=== PATIENT | male | born 1955 | race Caucasian/White ===

== ENCOUNTER 2021-12-15 05:14 | Observation (INO) ==
--- NOTE | 2021-11-12 15:12 | PAT Medication Instructions ---
Medication Instructions Date of Service November 12, 2021 Home Medications Medication Instructions Recorded oxycodone-acetaminophen 5 mg-325 1 - 2 tab PO Q6H PRN #60 tab 10/30/18 mg tablet (Percocet) allopurinol 300 mg tablet 300 mg PO QPM amlodipine 5 mg tablet 2.5 mg PO QPM carvedilol 25 mg tablet 25 mg PO BID cyclobenzaprine 10 mg tablet 10 mg PO QPM PRN furosemide 20 mg tablet 20 mg PO QAM omeprazole 20 mg capsule,delayed release 20 mg PO BID potassium chloride 10 mEq capsule,extended release 10 meq PO BID sennosides 8.6 mg tablet (senna) 17.2 mg PO QPM turmeric 400 mg capsule 1 cap PO QAM oxycodone-acetaminophen 5 mg-325 mg tablet (Percocet) 1 - 2 tab PO Q6H PRN allopurinol 100 mg tablet 100 mg PO QPM ascorbic acid (vitamin C) 500 mg tablet,extended release (Vitamin C ER) 500 mg PO DAILY cholecalciferol (vitamin D3) 25 mcg (1,000 unit) tablet (Vitamin D3) 25 mcg PO DAILY garlic 1,000 mg PO QAM losartan 50 mg tablet 50 mg PO QAM STOP taking 2 weeks before surgery (or as soon as possible if surgery is within 2 weeks) turmeric 400 mg capsule 1 cap PO QAM garlic 1,000 mg PO QAM DO NOT take the morning of surgery furosemide 20 mg tablet 20 mg PO QAM potassium chloride 10 mEq capsule,extended release 10 meq PO BID ascorbic acid (vitamin C) 500 mg tablet,extended release (Vitamin C ER) 500 mg PO DAILY cholecalciferol (vitamin D3) 25 mcg (1,000 unit) tablet (Vitamin D3) 25 mcg PO DAILY losartan 50 mg tablet 50 mg PO QAM Take morning of surgery With a small sip of water, OTHERWISE NOTHING TO EAT OR DRINK AFTER MIDNIGHT: carvedilol 25 mg tablet 25 mg PO BID omeprazole 20 mg capsule,delayed release 20 mg PO BID oxycodone-acetaminophen 5 mg-325 mg tablet (Percocet) 1 - 2 tab PO Q6H PRN (okay to take up to 4 hours prior to surgery if needed) Take evening before surgery allopurinol 300 mg tablet 300 mg PO QPM amlodipine 5 mg tablet 2.5 mg PO QPM carvedilol 25 mg tablet 25 mg PO BID cyclobenzaprine 10 mg tablet 10 mg PO QPM PRN (if needed) omeprazole 20 mg capsule,delayed release 20 mg PO BID potassium chloride 10 mEq capsule,extended release 10 meq PO BID sennosides 8.6 mg tablet (senna) 17.2 mg PO QPM oxycodone-acetaminophen 5 mg-325 mg tablet (Percocet) 1 - 2 tab PO Q6H PRN (if needed) allopurinol 100 mg tablet 100 mg PO QPM Other Notes If you have any questions please call us at [phone] or [phone] or [phone] or [phone]
--- NOTE | 2021-11-12 15:14 | PAT Medication Instructions ---
Medication Instructions Date of Service November 12, 2021 Home Medications Medication Instructions Recorded oxycodone-acetaminophen 5 mg-325 1 - 2 tab PO Q6H PRN #60 tab 10/30/18 mg tablet (Percocet) allopurinol 300 mg tablet 300 mg PO QPM amlodipine 5 mg tablet 2.5 mg PO QPM carvedilol 25 mg tablet 25 mg PO BID cyclobenzaprine 10 mg tablet 10 mg PO QPM PRN furosemide 20 mg tablet 20 mg PO QAM omeprazole 20 mg capsule,delayed release 20 mg PO BID potassium chloride 10 mEq capsule,extended release 10 meq PO BID sennosides 8.6 mg tablet (senna) 17.2 mg PO QPM turmeric 400 mg capsule 1 cap PO QAM oxycodone-acetaminophen 5 mg-325 mg tablet (Percocet) 1 - 2 tab PO Q6H PRN allopurinol 100 mg tablet 100 mg PO QPM ascorbic acid (vitamin C) 500 mg tablet,extended release (Vitamin C ER) 500 mg PO DAILY cholecalciferol (vitamin D3) 25 mcg (1,000 unit) tablet (Vitamin D3) 25 mcg PO DAILY garlic 1,000 mg PO QAM losartan 50 mg tablet 50 mg PO QAM STOP taking 2 weeks before surgery turmeric 400 mg capsule 1 cap PO QAM DO NOT take the morning of surgery furosemide 20 mg tablet 20 mg PO QAM potassium chloride 10 mEq capsule,extended release 10 meq PO BID ascorbic acid (vitamin C) 500 mg tablet,extended release (Vitamin C ER) 500 mg PO DAILY cholecalciferol (vitamin D3) 25 mcg (1,000 unit) tablet (Vitamin D3) 25 mcg PO DAILY garlic 1,000 mg PO QAM losartan 50 mg tablet 50 mg PO QAM Take morning of surgery With a small sip of water, OTHERWISE NOTHING TO EAT OR DRINK AFTER MIDNIGHT: carvedilol 25 mg tablet 25 mg PO BID omeprazole 20 mg capsule,delayed release 20 mg PO BID oxycodone-acetaminophen 5 mg-325 mg tablet (Percocet) 1 - 2 tab PO Q6H PRN(okay to take up to 4 hours prior to surgery if needed) Take evening before surgery allopurinol 300 mg tablet 300 mg PO QPM amlodipine 5 mg tablet 2.5 mg PO QPM carvedilol 25 mg tablet 25 mg PO BID cyclobenzaprine 10 mg tablet 10 mg PO QPM PRN(if needed) omeprazole 20 mg capsule,delayed release 20 mg PO BID potassium chloride 10 mEq capsule,extended release 10 meq PO BID sennosides 8.6 mg tablet (senna) 17.2 mg PO QPM oxycodone-acetaminophen 5 mg-325 mg tablet (Percocet) 1 - 2 tab PO Q6H PRN(if needed) allopurinol 100 mg tablet 100 mg PO QPM Other Notes If you have any questions please call us at [phone] or [phone] or [phone] or [phone]
--- NOTE | 2021-11-16 09:43 | Anesthesiology Consultation ---
Date of Service November 16, 2021 Assessment & Plan (1) Encounter for pre-operative examination: - intermittent chest discomfort with associated shortness of breath. He also reports intermittent dizziness on current dose of losartan. He is aware to contact his ticketer regarding symptoms. Awaiting cardiology pre-op evaluation and clearance, scheduled 11/25 per pt. Will also attempt to obtain copy of previous catheterization report. - awaiting medical pre-op evaluation and clearance, scheduled 11/23 per pt. - He reports currently planned dental procedure 2 weeks prior to planned surgery. He verbalized understanding he needs to contact surgeon's office to see if this is acceptable, aware of potential risk. - COVID screening: Per assessment on 11/16/2021: Travel screen negative, no known COVID-19 positive contacts or current COVID-19 related symptoms in past 2 weeks. Surgeon arranging preop COVID testing, scheduled 12/13/2021. Awaiting results. Chart Review Chart Review: Pending: Refer to Additional Notes / Consult section and Patient seen in Pre Admission Testing Teaching & Discussion Pre-Anesthesia Teaching/Discussion Notes: Instructed NPO after midnight before surgery, except medications with 15 cc of water. Medication instructions provided according to the PAT guidelines. History Surgery Operation Date: 12/15/21 10:45 Proposed Procedures p Right Total Knee Arthroplasty - Cristino Carrillo DO Height/Weight Height: 6 ft 4 in Weight: 129.274 kg Allergies Allergy/AdvReac Type Severity Reaction Status Date / Time No Known Allergies Allergy Verified 11/11/21 15:34 Medications Home Medications Medication Instructions Recorded Confirmed Last Taken allopurinol 300 mg tablet 300 mg PO QPM 05/11/18 11/11/21 05/28/18 20:30 amlodipine 5 mg tablet 2.5 mg PO QPM 05/11/18 11/11/21 05/29/18 05:30 carvedilol 25 mg tablet 25 mg PO BID 05/11/18 11/11/21 05/29/18 05:30 cyclobenzaprine 10 mg tablet 10 mg PO QPM PRN 05/11/18 11/11/21 05/27/18 21:00 furosemide 20 mg tablet 20 mg PO QAM 05/11/18 11/11/21 05/28/18 08:00 omeprazole 20 mg capsule,delayed 20 mg PO BID 05/11/18 11/11/21 05/28/18 05:30 release potassium chloride 10 mEq 10 meq PO BID 05/11/18 11/11/21 05/28/18 20:30 capsule,extended release sennosides 8.6 mg tablet (senna) 17.2 mg PO QPM 05/11/18 11/11/21 05/28/18 20:30 turmeric 400 mg capsule 1 cap PO QAM 05/11/18 11/11/21 05/28/18 08:00 oxycodone-acetaminophen 5 mg-325 1 - 2 tab PO Q6H PRN #60 tab 05/29/18 11/11/21 Unknown mg tablet (Percocet) allopurinol 100 mg tablet 100 mg PO QPM 11/11/21 11/11/21 Unknown ascorbic acid (vitamin C) 500 mg 500 mg PO DAILY 11/11/21 11/11/21 Unknown tablet,extended release (Vitamin C ER) cholecalciferol (vitamin D3) 25 25 mcg PO DAILY 11/11/21 11/11/21 Unknown mcg (1,000 unit) tablet (Vitamin D3) garlic 1,000 mg PO QAM 11/11/21 11/11/21 Unknown losartan 50 mg tablet 50 mg PO QAM 11/11/21 11/11/21 Unknown sucralfate PO QID 11/16/21 Unknown Past Medical History Medical History (Updated 11/16/21 @ 14:11 by Kathia Yee PA-C) CAD (coronary artery disease) NON-OBSTRUCTIVE per pt GERD (gastroesophageal reflux disease) intermittent symptoms, recently started on sucralafate 4x daily Gout History of nephrolithiasis Hypertension controlled, stable per pt Obesity Sleep apnea BIPAP-compliant Patient denies h/o stroke, seizures, heart attack, heart failure, DM, blood clots or blood transfusions. Exercise / Class Metabolic Activity II 4-5 Yardwork/Stairs/Walk up hill (Intermittent chest discomfort during the day after longer walk, states is on sucralafate for reflux; associated with SOB ) Past Surgical History Surgical History History of arthroscopy B/L; RIGHT SHOULDER ARTHROSCOPY= = LMA#5 History of arthroscopy BILATERAL KNEE History of cardiac cath 2015= NO STENTS History of colonoscopy History of cystoscopy History of laminectomy C4 History of lithotripsy History of tonsillectomy History of tympanoplasty right Status post myringotomy with insertion of tube Past Anesthesia History No Hx of Anesthesia Complications and No Family Hx of Anesthesia Complications History of PONV No Hx of PONV and No Hx of Motion Sickness Social History Smoking Status: Former smoker Do You Dip or Chew Tobacco: No Smoking End Date: 30 yrs ago Hx Alcohol Use: No Hx Substance Use: No substance use type: does not use Review of Systems He reports chills later in the day when is not as well hydrated. He reports occasional dizziness with activity on current dose of losartan, denies change or worsening, expresses plan to contact cardiology regarding his symptoms. Patient denies fever, cough, wheezing, or palpitations. Physical Exam Vital Signs Vitals BP 119/80 P 63 TEMP 98.5 SP02 96% on RA RESP 16 Physical Full cervical extension range of motion without pain TMD 3.5 finger breaths Mallampati Score 3 Dentition: intact, he reports upcoming dental procedure including implant placement 2 weeks prior to planned surgery (he verbalized understanding he needs to contact his surgeon to see if this is acceptable) Lungs: normal respiratory effort. Clear throughout to auscultation, no adventitious breath sounds Cardiac: regular rate and rhythm, no murmurs noted Carotid arteries: negative bruit bilat Lab Results Anesthesia Preop Results Results Anesthesia Widget: WBC 5.58 K/uL (4.8-10.8) 11/16/21 Hgb 15.1 g/dL (14.0-18.0) 11/16/21 Hct 44.0 % (42-52) 11/16/21 Plt 155 K/uL (130-400) 11/16/21 PT 10.0 Seconds (9.0-12.0) 11/16/21 PTT 27.9 Seconds (21.0-31.0) 11/16/21 INR 0.9 (0.9-1.1) 11/16/21 HA1c 5.6 % (4.5-5.6) 11/16/21 Urine Color Dark Yellow 11/16/21 Urine Appearance Clear (Clear) 11/16/21 Urine pH 7.0 (4.5-7.5) 11/16/21 Urine Specific [place] 1.028 (1.000-1.030) 11/16/21 Urine Protein Negative (Negative) 11/16/21 Urine Glucose (UA) Negative (Negative) 11/16/21 Urine Ketones Trace (Negative) H 11/16/21 Urine Blood Negative (Negative) 11/16/21 Urine Nitrite Negative (Negative) 11/16/21 Urine Bilirubin Negative (Negative) 11/16/21 Urine Urobilinogen Negative (Negative) 11/16/21 Urine Leukocyte Esterase 1+ (Negative) H 11/16/21 Urine WBC (Auto) 1-5 /hpf (0-5) 11/16/21 Urine RBC (Auto) 0-4 /hpf (0-4) 11/16/21 Urine Hyaline Casts (Auto) 0 /lpf (0-5) 11/16/21 Urine Epithelial Cells (Auto) 10-20 /lpf (0-5) H 11/16/21 Urine Bacteria (Auto) Negative (Negative) 11/16/21 Blood Type A Positive 11/16/21 Antibody Screen NEGATIVE 11/16/21 Testing Electrocardiogram Date: 11/16/21 Sinus rhythm with 1st degree AV block, rate 63 bpm Chest X-Ray Date: 11/16/21 Anterior cervical fixation hardware seen. The cardiomediastinal silhouette is normal. The lungs are clear. No evidence of pleural effusion or pneumothorax. IMPRESSION: No acute chest disease
--- NOTE | 2021-11-16 10:23 | Anesthesiology Consultation ---
Date of Service November 16, 2021 Assessment & Plan - Awaiting review of preop testing (labs, EKG, CXR). - COVID screening: Per assessment on 11/16: No known COVID-19 positive contacts or current COVID-19 related symptoms. Travel screen negative. Surgeon arranging preop COVID testing. Awaiting results. Chart Review Chart Review: Patient seen in Pre Admission Testing Teaching & Discussion Pre-Anesthesia Teaching/Discussion Notes: Instructed NPO after midnight before surgery,except medications with 15 cc of water. Medication instructions provided according to the PAT guidelines. History Surgery Operation Date: 12/15/21 10:45 Proposed Procedures p Right Total Knee Arthroplasty - Cristino Carrillo DO Height/Weight Height: 6 ft 4 in Weight: 129.274 kg Allergies Allergy/AdvReac Type Severity Reaction Status Date / Time No Known Allergies Allergy Verified 11/11/21 15:34 Medications Home Medications Medication Instructions Recorded Confirmed Last Taken allopurinol 300 mg tablet 300 mg PO QPM 05/11/18 11/11/21 05/28/18 20:30 amlodipine 5 mg tablet 2.5 mg PO QPM 05/11/18 11/11/21 05/29/18 05:30 carvedilol 25 mg tablet 25 mg PO BID 05/11/18 11/11/21 05/29/18 05:30 cyclobenzaprine 10 mg tablet 10 mg PO QPM PRN 05/11/18 11/11/21 05/27/18 21:00 furosemide 20 mg tablet 20 mg PO QAM 05/11/18 11/11/21 05/28/18 08:00 omeprazole 20 mg capsule,delayed 20 mg PO BID 05/11/18 11/11/21 05/28/18 05:30 release potassium chloride 10 mEq 10 meq PO BID 05/11/18 11/11/21 05/28/18 20:30 capsule,extended release sennosides 8.6 mg tablet (senna) 17.2 mg PO QPM 05/11/18 11/11/21 05/28/18 20:30 turmeric 400 mg capsule 1 cap PO QAM 05/11/18 11/11/21 05/28/18 08:00 oxycodone-acetaminophen 5 mg-325 1 - 2 tab PO Q6H PRN #60 tab 05/29/18 11/11/21 Unknown mg tablet (Percocet) allopurinol 100 mg tablet 100 mg PO QPM 11/11/21 11/11/21 Unknown ascorbic acid (vitamin C) 500 mg 500 mg PO DAILY 11/11/21 11/11/21 Unknown tablet,extended release (Vitamin C ER) cholecalciferol (vitamin D3) 25 25 mcg PO DAILY 11/11/21 11/11/21 Unknown mcg (1,000 unit) tablet (Vitamin D3) garlic 1,000 mg PO QAM 11/11/21 11/11/21 Unknown losartan 50 mg tablet 50 mg PO QAM 11/11/21 11/11/21 Unknown Past Medical History Medical History CAD (coronary artery disease) NON-OBSTRUCTIVE GERD (gastroesophageal reflux disease) CONTROLLED Gout History of nephrolithiasis Hx of renal calculi Hypertension Obesity Sleep apnea BIPAP Past Surgical History Surgical History History of arthroscopy B/L; RIGHT SHOULDER ARTHROSCOPY= = LMA#5 History of arthroscopy BILATERAL KNEE History of cardiac cath 2016= NO STENTS History of colonoscopy History of cystoscopy History of laminectomy C4 History of lithotripsy History of tonsillectomy History of tympanoplasty right Status post myringotomy with insertion of tube Social History Smoking Status: Former smoker Do You Dip or Chew Tobacco: No Smoking End Date: 30 yrs ago Hx Alcohol Use: No Hx Substance Use: No substance use type: does not use Review of Systems Patient denies chest pain, shortness of breath, dyspnea on exertion, fever, chills, cough, wheezing, palpitations. Physical Exam Vital Signs VITALS BP P TEMP SP02 RESP PHYSICAL Full cervical extension range of motion. Full TMJ range of motion. TMD __ finger breaths Mallampati Score ___ Dentition: intact Lungs: clear throughout to auscultation Cardiac: regular rate and rhythm, no murmurs noted Spine: normal Carotid arteries: negative bruit Extremities: no edema
--- NOTE | 2021-11-26 12:14 | History & Physical Report ---
Date of Service November 26, 2021 date of surgery: 12/15/21 Procedure: Right Total Knee Arthroplasty Surgeon: Cristino Carrillo Assessment & Plan (1) Arthritis of right knee: Plan: Further care discussed with patient and at this point in time has failed conservative measures and would like to proceed with a right total knee replacement. Plan on discharge will be home with home health physical therapy. DVT prophylaxiswith TEDs, SCDs and will also place on aspirin 81 mg p.o. b.i.d. for a month postop. Patient will have follow up appointment in our office two weeks post op for staple/suture removal and re-evaluation. Patient otherwise has no other questions or concerns. The risks and benefits have been discussed including, but not limited to, risk of infection, nerve injury, stiffness, loss of motion, failure to improve, etc. Reasonable outcomes and options of treatment were discussed. An explanation of appropriate alternatives to the procedure that may be advantageous were discussed and their risks and benefits, as well as the risks and benefits of not proceeding with treatment. I offered to answer any additional inquiries concerning the treatment involved. All the patient's questions were answered. The patient is agreeable, understanding of the treatment plan and alternatives, and wishes to proceed with the treatment plan. History of Present Illness Chief Complaint: Right knee pain Primary Care Provider: Praful Ramires is a 66 year old male who complains of right knee pain, presents for pre-op evaluation prior to a right total knee replacement by Dr Carrillo at [facility]. He complains of pain and stiffness in the knee. Currently the patient states that the symptoms are moderate-severe and 10/10 at worst. The pain is described as aching, sharp and throbbing. His symptoms are aggravated by ascending stairs, daily activities, first steps while awake walking. Prior NSAIDs include IBU and Aleve. He has been treated with previous injections including multiple cortisone inj and visco inj in the past without much relief. he has also had prior right knee arthroscopy in the past. Allergies Allergy/AdvReac Type Severity Reaction Status Date / Time No Known Allergies Allergy Verified 11/11/21 15:34 Home Medications Medication Instructions Recorded Confirmed Type allopurinol 300 mg tablet 300 mg PO QPM 05/11/18 11/11/21 History amlodipine 5 mg tablet 2.5 mg PO QPM 05/11/18 11/11/21 History carvedilol 25 mg tablet 25 mg PO BID 05/11/18 11/11/21 History cyclobenzaprine 10 mg tablet 10 mg PO QPM PRN 05/11/18 11/11/21 History furosemide 20 mg tablet 20 mg PO QAM 05/11/18 11/11/21 History omeprazole 20 mg capsule,delayed 20 mg PO BID 05/11/18 11/11/21 History release potassium chloride 10 mEq 10 meq PO BID 05/11/18 11/11/21 History capsule,extended release sennosides 8.6 mg tablet (senna) 17.2 mg PO QPM 05/11/18 11/11/21 History turmeric 400 mg capsule 1 cap PO QAM 05/11/18 11/11/21 History oxycodone-acetaminophen 5 mg-325 1 - 2 tab PO Q6H PRN #60 tab 05/29/18 11/11/21 Rx mg tablet (Percocet) allopurinol 100 mg tablet 100 mg PO QPM 11/11/21 11/11/21 History ascorbic acid (vitamin C) 500 mg 500 mg PO DAILY 11/11/21 11/11/21 History tablet,extended release (Vitamin C ER) cholecalciferol (vitamin D3) 25 25 mcg PO DAILY 11/11/21 11/11/21 History mcg (1,000 unit) tablet (Vitamin D3) garlic 1,000 mg PO QAM 11/11/21 11/11/21 History losartan 50 mg tablet 50 mg PO QAM 11/11/21 11/11/21 History sucralfate PO QID 11/16/21 History Past Med/Surg History Medical History CAD (coronary artery disease) NON-OBSTRUCTIVE per pt GERD (gastroesophageal reflux disease) intermittent symptoms, recently started on sucralafate 4x daily Gout History of nephrolithiasis Hypertension controlled, stable per pt Obesity Sleep apnea BIPAP-compliant Surgical History History of arthroscopy B/L; RIGHT SHOULDER ARTHROSCOPY= = LMA#5 History of arthroscopy BILATERAL KNEE History of cardiac cath 2015= NO STENTS History of colonoscopy History of cystoscopy History of laminectomy C4 History of lithotripsy History of tonsillectomy History of tympanoplasty right Status post myringotomy with insertion of tube Social History Smoking Status: Former smoker Second Hand Exposure: No; Hx Alcohol Use: No Hx Substance Use: No Preferred Language: Latvian Communication Ability: Effective 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 And 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 Required: No Beliefs That Will Affect Care: None Current Living Situation: Spouse Feels Safe at Home: Yes Assistive Devices: Glasses Review of Systems Review of Systems: All systems reviewed & are unremarkable except as noted in HPI & below Constitutional: no fever, no chills and no sweats Respiratory: no cough and no dyspnea Cardiovascular: no chest pain, no dyspnea and no orthopnea Gastrointestinal: no abdominal pain, no nausea and no vomiting Musculoskeletal: as per Subjective / HPI Physical Exam Physical Exam: HT: 6ft 4in WT: 129 kg Constitutional: WD/WN, vitals as above no acute distress Respiratory: normal respiratory effort, lungs clear to auscultation no respiratory distress, no labored breathing and does not use accessory muscles Cardiovascular: RRR, no murmur, no edema Gastrointestinal (Abdomen): normal bowel sounds, soft, nontender, no he patosplenomegaly Musculoskeletal: Knee: + knee abnormal to inspection (RIGHT KNEE- ), + effusion (+1 effusion), + surgical incision (well healed portals), + limited ROM of knee (ROM 0/3/110), + knee ROM with crepitation, + joint line tenderness (medial joint line) and + Sierra's sign positive; no deformity, no skin erythema, no ecchymosis, no valgus laxity, no varus laxity, anterior drawer test negative, Sakina's sign negative and pivot shift test negative Results & Data Results & Data ([facility]) Diagnostic Findings Right Knee X-ray: Right knee series showing advanced degenerative changes to the right knee, narrowing of the medial compartment and patello-femoral joint with patellar spurring noted, findings showing joint space narrowing of the medial compartment and patello-femoral joint, osteophyte formation and subchondral sclerosis noted. no acute bony pathology noted.
[2021-12-15] MEDS ORDERED: TRANEXAMIC ACID 1,000 MG **IV Intra-op IV SCH (06:00)
[2021-12-15] MEDS ORDERED: GABAPENTIN 600 MG DOSE PO SCH (06:00)
[2021-12-15] MEDS ORDERED: dexAMETHasone 4 MG TAB PO SCH (06:00)
[2021-12-15] MEDS ORDERED: ROPIVACAINE 0.5% HCL/PF 150 MG, BUPIVACAINE 0.75% MPF 20 ML, EPINEPHrine 30MG/30ML (OR ... INSTIL SCH (06:00)
[2021-12-15] MEDS ORDERED: FAMOTIDINE 20 MG TAB PO SCH (06:00)
[2021-12-15] MEDS ORDERED: TRANEXAMIC ACID 1,000 MG **IV Pre-op IV SCH (06:00)
[2021-12-15] MEDS ORDERED: ceFAZolin 2000MG 2,000 MG/15 ML SYR IV SCH (06:00)
[2021-12-15] MEDS ORDERED: ACETAMINOPHEN 500 MG TAB PO SCH (06:00)
[2021-12-15] MEDS ORDERED: oxyCODONE HCL 10 MG TABCR (OxyCONTIN) PO SCH (06:00)
[2021-12-15] MEDS ORDERED: CeleBREX 200 MG CAP PO SCH (06:00)
[2021-12-15] MEDS ORDERED: LR 500ML BOLUS, THEN 15ML/HR IV SCH (06:00)
[2021-12-15] MEDS ORDERED: METOCLOPRAMIDE HCL 10 MG TABLET PO SCH (06:00)
[2021-12-15] MEDS ORDERED: MIDAZOLAM HCL 1 MG/ML 2ML VIAL ONE ×3 (06:15→06:48)
[2021-12-15] MEDS ORDERED: PROPOFOL IV EMULSION 10 MG/ML 20 ML VIAL IV ONE (06:19)
[2021-12-15] MEDS ORDERED: BUPIVACAINE 0.5 % 5 MG/1 ML PF 10ML VIAL ONE (06:22)
[2021-12-15] MEDS ORDERED: ROPIVACAINE 0.5% 5 MG/ML 30 ML VIAL ONE (06:22)
[2021-12-15] MEDS ORDERED: ORTHO JOINT ANESTHETIC ONE (06:55)
--- NOTE | 2021-12-15 07:13 | History & Physical Bridge Note ---
Date of Service December 15, 2021 History & Physical Bridge Note I have examined the patient, reviewed the History & Physical and in the interval since the performance of the History & Physical I have noted the following changes of clinical significance: no changes noted
[2021-12-15] MEDS ORDERED: PROMETHAZINE HCL 12.5 MG in SODIUM CHLORIDE 0.9% 50 ML IV PRN (07:19)
[2021-12-15] MEDS ORDERED: ONDANSETRON INJ 2 MG/ML 2 ML VIAL IV PRN ×2 (07:19→11:34)
[2021-12-15] MEDS ORDERED: fentaNYL citrate 100 MCG/2 ML VIAL IV PRN (07:19)
[2021-12-15] MEDS ORDERED: ePHEDrine sulfate 50 MG/ML AMP IV PRN (07:19)
[2021-12-15] MEDS ORDERED: ATROPINE SULFATE 0.1 MG/ML 10ML SYR IV PRN (07:19)
[2021-12-15] MEDS ORDERED: HYDROmorphone INJ 2 MG/ML SYR/VIAL IV PRN (07:19)
[2021-12-15] MEDS ORDERED: ONDANSETRON INJ 2 MG/ML 2 ML VIAL ONE (07:41)
[2021-12-15] MEDS ORDERED: ePHEDrine sulfate 50 MG/ML SYR ONE (08:26)
--- NOTE | 2021-12-15 08:46 | Operative Report ---
Post Operative Report Pre & Post Diagnosis Operation Date: 12/15/21 07:00 Pre-Op Diagnosis: Right Knee Osteoarthritis Post-Op Diagnosis: Right Knee Osteoarthritis I identified the patient and participated in the time-out.: Yes Procedure Operation Date: 12/15/21 07:00 Actual Procedures p Right Total Knee Arthroplasty(Right) utilizing [employer] journey 2 patient matched total knee arthroplasty size femur 7 tibia 6 polyeleven 13 patella 32 oval Cristino Carrillo DO Surgeon Cristino Carrillo DO Medical Artist ABIGAIL Sanders Estimated Blood Loss 5 Findings Consistent with Post-Op Diagnosis Patient presents with severe end-stage tricompartmental degenerative joint disease with eburnated [id number] subchondral sclerosis marginal osteophytes varus alignment 5 degree flexion contracture moderate to large effusion Specimens Bone and cartilage Drains Medium bore Hemovac Anesthesia Type MAC Spinal Regional Complications none Disposition Accompanied Patient To Recovery: No Disposition: Recovery Room Indications Patient presents after failed attempted conservative management including physical therapy anti-inflammatories relative rest activity modification corticosteroid injection viscosupplementation the above intraoperative findings were noted Description of Procedure After proper prepping and draping of the Right lower extremity anterior midline incision was made over the region of the extensor extensor mechanism after meticulous hemostasis was obtained and maintained in subcutaneous tissues a medial parapatellar incision was made The patella was subluxed lateralward the medial lateral gutter were cleaned from any hypertrophic synovitis and scar tissue of the distal femoral block was placed and the distal femoral osteotomy cut was made subsequently the chamfers anterior and posterior osteotomy cuts were made utilizing the 4-in-1 block the tibia was subsequently subluxed anteriorward medial and ateral meniscal remnants were excised in their entirety remnants of the anterior and posterior cruciate ligaments were excised in their entirety excellent exposure of the proximal tibia was obtained the tibial osteotomy guide was placed on the proximal tibial osteotomy cut was made once again the knee was irrigated with copious amounts of sterile saline solution the patella was subsequently everted lateralward thickened scar tissue around the patella was removed the patella was subsequently cut utilizing a freehand technique and was drilled prepared for final preparation and placement of patella socially flexion-extension gaps were checked and the equal and symmetric trials were placed to the appropriate femoral and tibial trials with poly-spacer being placed for equal flexion and extension gaps and full range of motion including extension to 0 and flexion to 140 the trial components after having been taken to recovery range of motion was subsequently removed meticulous hemostasis was obtained and maintained subsequently a knee block injection of joint cocktail including ropivacaine 0.5% 150 mg. Bupivacaine 0.5% epinephrine 1-200,030 mL's toradol 30 mg dexamethasone 4 mg ketamine 10 mg clonidine 100 micrograms normal saline solution 30 mg was infiltrated into the soft tissues of the posterior knee medial lateral gutters and periosteal synovium special attention was paid to protect neurovascular structures at all times subsequently trial components having been removed the knee was irrigated with sterile saline solution. debris was removed the proximal tibia was subsequently prepared and was made ready for the placement of the tibial component tibial component was also cemented and tamped into position the femoral component was subsequently placed and cemented in the position the patellar component was subsequently cemented in position because hemostasis once again obtained and maintained wound having been thoroughly irrigated with debridement and debridement lavage was performed as well as a medial parapatellar incision closed with #1 Vicryl in interrupted fashion subcutaneous was closed with #2 Vicryl skin was closed with skin clips. PA-C was necessary for prepping and drapping as well as wound closure of deep fascia Sub cutaneous tissue and skin and was necessary for the case. A sterile compressive dressing was placed patient was taken to recovery in stable condition of report dictated by Gerardo I attest to the content of the Intraoperative Record and any orders documented therein. Any exceptions are noted below.Due to the complex nature of the procedure, the entire surgery was performed with the operational assistance of ABIGAIL Sanders. The title i instructional assistant, under direct supervision, was involved in the actual performance of all aspects of the surgical procedure including hemostasis, tissue retraction and incision, instrument management, patient positioning, and wound closure. I attest to the content of the Intraoperative Record and any orders documented therein. Any exceptions are noted below.
--- NOTE | 2021-12-15 09:29 | XRay Report ---
XR knee RT 1 or 2V routine CLINICAL HISTORY: Surgical Post Op. Status post total knee replacement COMPARISON STUDY: No previous studies for comparison. TECHNIQUE: 2 right knee views FINDINGS: The patient is status post total knee replacement. The prosthetic components are in anatomi c alignment with no acute abnormality seen. Air is present within the soft tissues from the procedure . IMPRESSION: 1. Status post total knee replacement. ACT 112: Negative or not required by law. Electronically signed by: Hardeep Azevedo M.D. 12/15/2021 9:27 AM
--- NOTE | 2021-12-15 10:35 | Anesthesiology Progress Note ---
Date of Service December 15, 2021 Anesthesia Post Procedure Vital Signs Vital Signs: Temp Pulse Pulse Resp BP Pulse Ox 12/15/21 10:25 36.5 C 58 L 16 118/84 95 12/15/21 10:10 58 L 15 122/77 96 12/15/21 09:55 56 L 15 120/79 95 12/15/21 09:45 56 L 14 122/76 96 12/15/21 09:35 55 L 14 122/79 95 12/15/21 09:25 55 L 14 125/82 94 12/15/21 09:15 65 14 126/77 95 12/15/21 09:05 55 L 14 120/77 96 12/15/21 08:57 36.3 C L 62 14 115/70 98 12/15/21 05:35 36.9 C 69 18 142/81 H 97 Pain Intensity Right Knee: Pain Intensity: 1 Transfer of Care Handoff Completed per policy Notes Mental Status: alert / awake / arousable and participated in evaluation Patient Amnestic to Procedure: Yes Nausea / Vomiting: adequately controlled Pain: adequately controlled Airway Patency, RR, SpO2: stable & adequate BP & HR: stable & adequate Hydration State: stable & adequate Neuraxial Anesthesia: was administered and sensory block is resolving Anesthetic Complications: no major complications apparent
[2021-12-15] MEDS ORDERED: CYCLOBENZAPRINE HCL 10 MG TAB PO PRN (11:34)
[2021-12-15] MEDS ORDERED: NALOXONE HCL 0.4 MG/1 ML VIAL/CARP IV PRN (11:34)
[2021-12-15] MEDS ORDERED: diphenhydrAMINE Capsule 25 MG CAP PO PRN (11:34)
[2021-12-15] MEDS ORDERED: MAGNESIUM HYDROXIDE SUSP 30 ML UDC PO PRN (11:34)
[2021-12-15] MEDS ORDERED: METOCLOPRAMIDE HCL INJ 5 MG/ML 2 ML VIAL IV PRN (11:34)
[2021-12-15] MEDS ORDERED: HYDROmorphone INJ 1 MG/ML SYRINGE IV PRN (11:34)
[2021-12-15] MEDS ORDERED: NON-FORMULARY MEDICATION (Garlic Capsule) PO SCH (11:34)
[2021-12-15] MEDS ORDERED: bisacodyL 10 MG SUPP PR PRN (11:34)
[2021-12-15] MEDS: POTASSIUM CHLORIDE 10 MEQ TABCR PO SCH ×3 (13:36→20:37)
[2021-12-15] MEDS: ASPIRIN 81 MG ECTAB PO SCH ×2 (13:36→20:35)
[2021-12-15] MEDS: ASCORBIC ACID 500 MG TAB PO SCH (13:36)
[2021-12-15] MEDS: carvediloL 25 MG TAB PO SCH ×3 (13:36→20:36)
[2021-12-15] MEDS: KETOROLAC TROMETHAMINE 15 MG/ML VIAL IV SCH ×3 (13:37→23:58)
[2021-12-15] MEDS: SODIUM CHLORIDE 0.9% 1000ML 1,000 ML IV SCH ×2 (13:53→23:57)
[2021-12-15] MEDS: MULTIVITAMIN TAB PO SCH (15:36)
[2021-12-15] MEDS: CHOLECALCIFEROL 1,000 UNITS 25 MCG TAB PO SCH (15:36)
[2021-12-15] MEDS: ACETAMINOPHEN 500 MG TAB PO SCH ×2 (15:36→21:44)
[2021-12-15] MEDS: DOCUSATE SODIUM 100 MG CAP PO SCH ×2 (15:36→20:37)
[2021-12-15] MEDS: oxyCODONE HCL IR 5 MG TAB (IMMEDIATE RELEASE) PO PRN ×3 (15:36→23:57)
[2021-12-15] MEDS: ceFAZolin 2000MG 2,000 MG/15 ML SYR IV SCH ×2 (15:59→22:34)
[2021-12-15] MEDS ORDERED: amLODIPine BESYLATE 5 MG TAB PO SCH (21:00)
[2021-12-15] MEDS ORDERED: allopurinoL 300 MG TAB PO SCH (21:00)
[2021-12-15] MEDS ORDERED: SENNA 8.6 MG TAB PO SCH ×2 (21:00)
[2021-12-15] MEDS ORDERED: allopurinoL 100 MG TAB PO SCH (21:00)
[2021-12-15] MEDS: PANTOprazole 40 MG TAB PO SCH (21:41)
[2021-12-16] MEDS: oxyCODONE HCL IR 5 MG TAB (IMMEDIATE RELEASE) PO PRN ×2 (05:19→10:31)
[2021-12-16] MEDS: ACETAMINOPHEN 500 MG TAB PO SCH ×2 (05:19→13:54)
[2021-12-16] MEDS: KETOROLAC TROMETHAMINE 15 MG/ML VIAL IV SCH (05:19)
--- NOTE | 2021-12-16 07:22 | Orthopedic Progress Note ---
Date of Service December 16, 2021 Assessment & Plan (1) History of total right knee replacement: Plan: POD #1 s/p Right TKA pt/ot dvt proph with ISAAC/SCD/ASA plan for d/c home with outpatient PT at [facility] Admission and Anticipated Discharge Date Admission Date: December 15, 2021 Subjective POD #1 s/p Right TKA Review of Systems Constitutional: no fever, no chills and no sweats Respiratory: no cough and no dyspnea Cardiovascular: no chest pain and no dyspnea Gastrointestinal: no abdominal pain, no nausea and no vomiting Physical Exam Physical Exam: Vital Signs Temp Pulse Pulse Pulse Resp BP BP 12/16/21 02:55 36.6 C 65 16 104/62 12/15/21 22:03 37.1 C 64 18 113/75 12/15/21 19:03 36.7 C 81 18 111/74 12/15/21 17:04 36.7 C 90 16 119/76 12/15/21 14:16 80 16 127/78 12/15/21 13:53 36.7 C 74 18 141/87 H 12/15/21 13:10 36.7 C 76 16 141/80 H 12/15/21 12:40 36.6 C 71 18 120/78 12/15/21 12:25 75 17 119/83 12/15/21 11:55 67 17 116/73 12/15/21 11:25 63 16 118/76 12/15/21 11:10 62 17 118/79 12/15/21 10:55 60 15 125/85 12/15/21 10:40 59 L 16 128/83 12/15/21 10:25 36.5 C 58 L 16 118/84 12/15/21 10:10 58 L 15 122/77 12/15/21 09:55 56 L 15 120/79 12/15/21 09:45 56 L 14 122/76 12/15/21 09:35 55 L 14 122/79 12/15/21 09:25 55 L 14 125/82 12/15/21 09:15 65 14 126/77 12/15/21 09:05 55 L 14 120/77 12/15/21 08:57 36.3 C L 62 14 115/70 Pulse Ox 12/16/21 02:55 93 12/15/21 22:03 94 12/15/21 19:03 93 05/18/22 17:04 94 12/15/21 14:16 95 12/15/21 13:53 94 12/15/21 13:10 94 12/15/21 12:40 95 12/15/21 12:25 94 12/15/21 11:55 92 12/15/21 11:25 93 12/15/21 11:10 93 12/15/21 10:55 93 12/15/21 10:40 93 12/15/21 10:25 95 12/15/21 10:10 96 12/15/21 09:55 95 12/15/21 09:45 96 12/15/21 09:35 95 12/15/21 09:25 94 12/15/21 09:15 95 12/15/21 09:05 96 12/15/21 08:57 98 Intake and Output 12/15/21 12/16/21 12/16/21 22:59 06:59 14:59 Intake Total 1360 / 4760 1700 / 4760 Output Total 1050 / 1470 375 / 1470 Balance 310 / 3290 1325 / 3290 Intake: IV 1000 / 1200 Sodium Chlorid e 0.9% 1000ML 1, 1000 / 1000 000 ml @ 100 m ls/hr IV .Q10H [facility] Rx#:[id number] Oral 1360 / 2060 700 / 2060 Output: Urine 850 / 1075 225 / 1075 Drain Output 200 / 390 150 / 390 Right Knee 200 / 390 150 / 390 Musculoskeletal: Right Leg: NVDI, calf SNT, negative jonelle sign. DP palpable, able to wiggle toes/ankle movement without difficulty. dressing clean dry and intact. Results & Data ([facility]) Vital Signs (Past 12 Hours) Vital Signs Temp Pulse Pulse Resp BP BP Pulse Ox 12/16/21 02:55 36.6 C 65 16 104/62 93 12/15/21 22:03 37.1 C 64 18 113/75 94 Laboratory Results Laboratory Results SARS-CoV-2, RNA, NAAT NEGATIVE (NEGATIVE) 12/15/21 05:35 Impressions Knee X-Ray 12/15/21 08:58 XR knee RT 1 or 2V routine CLINICAL HISTORY: Surgical Post Op. Status post total knee replacement COMPARISON STUDY: No previous studies for comparison. TECHNIQUE: 2 right knee views FINDINGS: The patient is status post total knee replacement. The prosthetic components are in anatomic alignment with no acute abnormality seen. Air is present within the soft tissues from the procedure. IMPRESSION: 1. Status post total knee replacement. ACT 112: Negative or not required by law. Electronically signed by: Hardeep Azevedo M.D. 12/15/2021 9:27 AM
--- NOTE | 2021-12-16 07:36 | Discharge Summary ---
Date of Service date of discharge: December 16, 2021 date of admission: 12/15/21 Admission HPI Per Admitting Provider Ike is a 66 year old male who complains of right knee pain, presents for pre-op evaluation prior to a right total knee replacement by Dr Carrillo at [facility]. He complains of pain and stiffness in the knee. Currently the patient states that the symptoms are moderate-severe and 10/10 at worst. The pain is described as aching, sharp and throbbing. His symptoms are aggravated by ascending stairs, daily activities, first steps while awake walking. Prior NSAIDs include IBU and Aleve. He has been treated with previous injections including multiple cortisone inj and visco inj in the past without much relief. he has also had prior right knee arthroscopy in the past. Principal Diagnosis right knee arthritis Discharge Exam Vital Signs Temp Pulse Pulse Pulse Resp BP BP 12/16/21 02:55 36.6 C 65 16 104/62 12/15/21 22:03 37.1 C 64 18 113/75 12/15/21 19:03 36.7 C 81 18 111/74 12/15/21 17:04 36.7 C 90 16 119/76 12/15/21 14:16 80 16 127/78 12/15/21 13:53 36.7 C 74 18 141/87 H 12/15/21 13:10 36.7 C 76 16 141/80 H 12/15/21 12:40 36.6 C 71 18 120/78 12/15/21 12:25 75 17 119/83 12/15/21 11:55 67 17 116/73 12/15/21 11:25 63 16 118/76 12/15/21 11:10 62 17 118/79 12/15/21 10:55 60 15 125/85 12/15/21 10:40 59 L 16 128/83 12/15/21 10:25 36.5 C 58 L 16 118/84 12/15/21 10:10 58 L 15 122/77 12/15/21 09:55 56 L 15 120/79 12/15/21 09:45 56 L 14 122/76 12/15/21 09:35 55 L 14 122/79 12/15/21 09:25 55 L 14 125/82 12/15/21 09:15 65 14 126/77 12/15/21 09:05 55 L 14 120/77 12/15/21 08:57 36.3 C L 62 14 115/70 Pulse Ox 12/16/21 02:55 93 12/15/21 22:03 94 12/15/21 19:03 93 12/15/21 17:04 94 12/15/21 14:16 95 12/15/21 13:53 94 12/15/21 13:10 94 12/15/21 12:40 95 12/15/21 12:25 94 12/15/21 11:55 92 12/15/21 11:25 93 12/15/21 11:10 93 12/15/21 10:55 93 12/15/21 10:40 93 12/15/21 10:25 95 12/15/21 10:10 96 12/15/21 09:55 95 12/15/21 09:45 96 12/15/21 09:35 95 12/15/21 09:25 94 12/15/21 09:15 95 12/15/21 09:05 96 12/15/21 08:57 98 Intake and Output 12/15/21 12/16/21 12/16/21 22:59 06:59 14:59 Intake Total 1360 / 4760 1700 / 4760 Output Total 1050 / 1470 375 / 1470 Balance 310 / 3290 1325 / 3290 Intake: IV 1000 / 1200 Sodium Chloride 0.9% 1000ML 1, 1000 / 1000 000 ml @ 100 mls/hr IV .Q10H [facility] Rx#:[id number] Oral 1360 / 2060 700 / 2060 Output: Urine 850 / 1075 225 / 1075 Drain Output 200 / 390 150 / 390 Right Knee 200 / 390 150 / 390 Constitutional WD/WN, vitals as above no acute distress Respiratory normal respiratory effort, lungs clear to auscultation no respiratory distress, no labored breathing and does not use accessory muscles Cardiovascular RRR, no murmur, no edema Gastrointestinal (Abdomen) normal bowel sounds, soft, nontender, no hepatosplenomegaly Musculoskeletal right knee: NVDI, calf SNT, negative jonelle sign. DP palpable, able to wiggle toes/ankle movement without difficulty. INGE dressing clean dry and intact. Discharge Data Allergies Allergy/AdvReac Type Severity Reaction Status Date / Time No Known Allergies Allergy Verified 12/15/21 05:44 Procedures Performed Operation Date: 12/15/21 07:00 Actual Procedures p Right Total Knee Arthroplasty(Right) - Cristino Carrillo DO Ordered Studies 12/15/21 05:00 US - OR guided needle placemen Routine Hospital Course (1) History of total right knee replacement: POD #1 s/p Right TKA pt/ot dvt proph with ISAAC/SCD/ASA plan for d/c home with outpatient PT at [facility] Total Time Total Time Spent Total Time Spent (In Minutes): 30 Discharge Plan Discharge Items Patient Disposition: Home - Self-Care Reason For Visit: Right Knee Osteoarthritis Discharge Diagnosis: RIGHT TOTAL KNEE REPLACEMENT Activity: Per Instructions section Lifting: Wait until after follow-up appointment Weightbearing Comment: WBAT WITH WALKER Non-emergency contact: Surgeon Call non-emergency contact if: you have any medication questions, your temperature is above 101, your wound has increased redness, your wound has increased drainage and your wound pain has increased Follow-up/Referrals: Nicolas Kulkarni MD [Primary Care Provider] - Diet: Regular Addtl Attending Provider Instructions: ACTIVITY RECOMMENDATIONS: SELF CARE INSTRUCTIONS AFTER TOTAL KNEE REPLACEMENT A. You may need to continue a physical therapy program after discharge from the hospital. There are several options available to you. Your doctor will assist you in selecting the best one for you. 1. An out-patient facility 2 to 3 times a week for therapy or home therapy. 2. Continue working on all exercises taught to you in the hospital. Your goals should be to increase bending of your knee to 90 degrees and beyond and to fully straighten your knee. B. You may progress at your own pace from walking with a walker or crutches to a cane; then to no assistive devices. C. Make walking a part of your daily routine. Be up as much as comfortable with rest periods throughout the day. Rest with leg elevation is very important. Use the ice wrap frequently for the first 3-4 weeks. D. There are no restrictions on activities. You may ride in a car, shop, participate in irradiated fuel handler and all social activities. E. Wear the long elastic stockings (ISAAC hose) 20 hours a day for 2 weeks after surgery. They can be removed several times a day for laundering and for a bath. F. You may shower, no tub baths until cleared by your doctor. SPECIAL CARE INSTRUCTIONS: VERY IMPORTANT TO READ AND REVIEW A. There are a few signs you need to watch for after you are home. Call [facility] if you notice any of the followin. Increased severe knee pain. Some pain is expected especially when you exercise. 2. Increased swelling in your leg or knee; pain or swelling of the calf muscle in either lower leg. 3. Any fluid drainage from the incision. 4. Shortness of breath or chest pain. B. Please call [facility] at if you have any concerns or questions about your operation or recovery. The doctor or his nurse will return your call promptly. C. You must take antibiotics before dental work, bladder, bowel or other surgery. Your doctor will provide you with a permanent care to carry describing this precaution. IMPORTANT: * REMEMBER TO TAKE ASPIRIN, 81 MG, TWICE DAILY FOR 4 WEEKS UNLESS OTHERWISE DIRECTED. THIS IS YOUR BLOOD THINNER. * HIGH RISK PATIENTS MAY BE PRESCRIBED A STRONGER BLOOD THINNER. THIS WILL BE PROVIDED AT DISCHARGE. * CALL IF INCREASED PAIN, REDNESS, DRAINAGE OR FEVER GREATER THAT 101. * WEAR ISAAC HOSE 20 HOURS PER DAY FOR 2 WEEKS. * INGE Dressing- This is a large suction dressing covering your incision. This will help pull any excess drainage from the wound and allow your incision to heal properly. You may shower with this if you can keep the unit outside of the shower. If any bleeding or leakage is noted please call your doctor's office. This will remain on your incision for 7 days and then should be removed. This can be done yourself or by the home nursing staff if applicable. The entire unit is disposable once removed. Once removed, keep incision clean and dry. If redness or drainage is noted, please call your surgeon. ONCE INGE IS REMOVED, FOLLOW THESE INSTRUCTIONS: DERMABOND Prineo- This is a mesh tape dressing that is covered with glue. It should remain in place until the incision is properly healed, usually 10-14 days. This dressing is designed to naturally slough off. You may trim the excess mesh tape as it peels off. Incision may be briefly wet in a shower. Dry immediately by blotting with a clean, dry towel. Do not bath or swim until instructed by your doctor. Do not scratch, rub, or pick at the dressing. Do no t apply any topical ointments or lotions until dressing is completely removed and/or instructed by your doctor. There may be a small piece of suture material at one end of your incision. Do not pull or trim this. If it is bothersome or catching on clothing, you may cover it with a band-aid. IF INCISION IS LEAKING THROUGH DRESSING, CALL THE OFFICE . FOLLOW UP VISIT: If appointment is not already scheduled: Please call [facility] to make a follow-up appointment for 2 weeks after your surgery at . Pending Studies at Discharge: No Stand-Alone Forms: My [facility] [employer], Smoking Cessation Medications and DC Order Prescriptions: New celecoxib [Celebrex] 200 mg Capsule 200 mg PO BID 30 Days Qty: 60 RF: 0 aspirin 81 mg Tablet,Delayed Release (Dr/Ec) 81 mg PO BID 30 Days Qty: 60 RF: 0 acetaminophen [Tylenol Extra Strength] 500 mg Tablet 1,000 mg PO Q8 21 Days Qty: 126 RF: 0 oxycodone 5 mg Tablet 5 - 10 mg PO Q6H PRN (Reason: pain) Qty: 30 RF: 0 docusate sodium 100 mg Capsule 100 mg PO BID 10 Days Qty: 20 RF: 0 cefadroxil 500 mg capsule 500 mg PO BID 14 Days Qty: 28 RF: 0 Continued cyclobenzaprine 10 mg Tablet 10 mg PO QPM PRN (Reason: Muscle Spasm) RF: 0 carvedilol 25 mg Tablet 25 mg PO BID RF: 0 sennosides [senna] 8.6 mg Tablet 17.2 mg PO QPM RF: 0 potassium chloride 10 mEq Capsule, Extended Release 10 meq PO BID RF: 0 amlodipine 5 mg Tablet 2.5 mg PO QPM RF: 0 omeprazole 20 mg Capsule,Delayed Release(Dr/Ec) 20 mg PO BID RF: 0 allopurinol 300 mg Tablet 300 mg PO QPM RF: 0 furosemide 20 mg Tablet 20 mg PO QAM RF: 0 allopurinol 100 mg Tablet 100 mg PO QPM RF: 0 ascorbic acid (vitamin C) [Vitamin C] 500 mg Tablet Extended Release 500 mg PO DAILY RF: 0 cholecalciferol (vitamin D3) [Vitamin D3] 25 mcg (1,000 unit) Tablet 25 mcg PO DAILY RF: 0 sucralfate PO QID RF: 0 Discontinued turmeric 400 mg Capsule 1 cap PO QAM RF: 0 oxycodone-acetaminophen [Percocet] 5-325 mg Tablet 1 - 2 tab PO Q6H PRN (Reason: pain) Qty: 60 RF: 0 garlic Capsule 1,000 mg PO QAM RF: 0 Discharge Orders: Discharge Order (Routine); Ordered 12/16/21 Ordered By: Melchor Mandujano Admission Data Admit Date/Time: 12/15/21 08:58 Attending Provider: Cristino Carrillo Admit Provider: Cristino Carrillo Primary Care Provider: Nicolas Kulkarni
[2021-12-16 07:37] LABS: Hemoglobin 12.8 g/dL (14.0-18.0); Mean Corpuscular Hemoglobin 30.5 pg (25-34); Mean Corpuscular Hgb Conc 35.6 g/dL (32-36); Mean Corpuscular Volume 85.9 fL (80-100); Mean Platelet Volume 9.3 fL (7.4-10.4); Platelet Count 184 K/uL (130-400); RDW Coefficient of Variation 13.2 % (11.5-14.5); RDW Standard Deviation 41.4 fL (36.4-46.3); Red Blood Count 4.19 M/uL (4.7-6.1); White Blood Count 15.11 K/uL (4.8-10.8)
[2021-12-16 07:43] LABS: BUN Creatinine Ratio 20.7 (10-20); Calcium 8.6 mg/dl (8.5-10.1); Creatinine Clr Calc Pharmacy 99.2 ml/min; Est GFR (African American) 80.9 ml/min; Est GFR (Non-African American) 69.8 ml/min
[2021-12-16] MEDS ORDERED: TORSEMIDE 10 MG TAB PO ONE (09:30)
[2021-12-16] MEDS: DOCUSATE SODIUM 100 MG CAP PO SCH (10:32)
[2021-12-16] MEDS: ASPIRIN 81 MG ECTAB PO SCH (10:32)
[2021-12-16] MEDS: MULTIVITAMIN TAB PO SCH (10:32)
[2021-12-16] MEDS: PANTOprazole 40 MG TAB PO SCH (10:32)
[2021-12-16] MEDS: CHOLECALCIFEROL 1,000 UNITS 25 MCG TAB PO SCH (10:32)
[2021-12-16] MEDS: POTASSIUM CHLORIDE 10 MEQ TABCR PO SCH (10:33)
[2021-12-16] MEDS: carvediloL 25 MG TAB PO SCH (10:33)
[2021-12-16] MEDS: ASCORBIC ACID 500 MG TAB PO SCH (10:35)
[2021-12-16] MEDS ORDERED: CeleBREX 200 MG CAP PO SCH (21:00)
== END 2021-12-16 15:19 | disposition home health service (06) | DRG 470 ==
LOC: ASU 05:14 → PACUINP 08:58 → INTOOBSV 08:58 → 3N 12:45